=== PATIENT | male | born 1980 | race African-American/Black ===

== ENCOUNTER 2018-06-18 00:46 | Emergency (ER) | payer MEDICAID ==
[~2018-06-18] VITALS: Ht 182.9 cm; Wt 81.0 kg
[2018-06-18] MEDS ORDERED: ACETAMINOPHEN 325MG TABLET PO ONE (06:30)
[2018-06-18 07:13] LABS: CLARITY URINE CLEAR (CLEAR); COLOR URINE YELLOW (YELLOW); KETONES URINE NEGATIVE (NEGATIVE); LEUKOCYTE ESTERASE URINE NEGATIVE (NEGATIVE); NITRITE URINE NEGATIVE (NEGATIVE); OCCULT BLOOD URINE NEGATIVE (NEGATIVE); PH URINE 6.5 (4.5-8.0); PROTEIN URINE NEGATIVE (NEGATIVE); SPECIFIC GRAVITY URINE 1.002 (1.005-1.030); UROBILINOGEN URINE 0.2 E.U./dL (0.2-1.0)
[2018-06-18 07:13] LABS: CHLORIDE 110 mEq/L (98-107)
[2018-06-18] MEDS ORDERED: SODIUM CHLORIDE 0.9% 1,000 ML IV ONE (07:15)
[2018-06-18 07:17] LABS: BASOPHILS % 0.4 % (0.0-2.0); ETHANOL BLOOD < 10 mg/dL; HEMOGLOBIN. 15.1 g/dL (14.0-18.0); LYMPHOCYTES % 23.7 % (20.0-50.0); MEAN CORPUSCULAR VOLUME 89.5 fL (80.0-94.0); MEAN PLATELET VOLUME 8.6 fl (7.4-10.4); MONOCYTES % 7.6 % (2.0-8.0); NEUTROPHILS % 67.3 % (40.0-76.0); PLATELET 269 x1000/uL (130-400); RED BLOOD CELL COUNT 5.03 mill/uL (4.7-6.1)
[2018-06-18 07:32] LABS: *AMPHETAMINES SCREEN URINE NEGATIVE (NEGATIVE); CANNABINOID URINE SCREEN PRESUMTIVE POSITIVE (NEGATIVE); METHADONE URINE SCREEN NEGATIVE (NEGATIVE); OPIATES URINE SCREEN NEGATIVE (NEGATIVE); PHENCYCLIDINE URINE SCREEN NEGATIVE (NEGATIVE)
[2018-06-18 07:33] LABS: *BENZODIAZEPINES SCREEN URINE NEGATIVE (NEGATIVE); *COCAINE SCREEN URINE PRESUMTIVE POSITIVE (NEGATIVE)
[2018-06-18 07:34] LABS: *BARBITURATES SCREEN URINE NEGATIVE (NEGATIVE)
[2018-06-18] MEDS ORDERED: METOCLOPRAMIDE HCL 10MG/2ML VIAL IV ONE (08:30)
[2018-06-18] MEDS ORDERED: KETOROLAC 15MG/ML VIAL IV ONE (08:30)
[2018-06-18 10:33] VITALS: BP 106/75
== END 2018-06-18 10:40 | disposition home or self-care (01) ==
LOC: ER 00:46
DX: R55 Syncope and collapse (principal); R51 Headache; R73.03 Prediabetes; Z91.018 Allergy to other foods; Z98.890 Other specified postprocedural states
CPT/HCPCS: 36415; 71045; 80053; 80305; 81003; 83880; 84484; 85025; 93005; 96361; 96374; 96375; 99284; G0482; J1885; J2765; J7030

== ENCOUNTER 2018-11-17 05:48 | Emergency (ER) | payer MEDICAID ==
[~2018-11-17] VITALS: Ht 180.3 cm; Wt 66.0 kg
[2018-11-17] MEDS ORDERED: SODIUM CHLORIDE 0.9% 1,000 ML IV ONE (06:36)
[2018-11-17] MEDS ORDERED: KETOROLAC 30MG/ML VIAL IV STA (06:36)
[2018-11-17] MEDS ORDERED: METOCLOPRAMIDE HCL 10MG/2ML VIAL IV ONE (06:45)
[2018-11-17 06:58] LABS: BASOPHILS % 0.7 % (0.0-2.0); HEMATOCRIT. 38.7 % (42.0-52.0); HEMOGLOBIN. 13.6 g/dL (14.0-18.0); MEAN CORPUSCULAR HEMOGLOBIN 30.6 pg (28.0-32.0); MEAN PLATELET VOLUME 8.2 fl (7.4-10.4); MONOCYTES % 8.6 % (2.0-8.0); NEUTROPHILS % 58.7 % (40.0-76.0); PLATELET 257 x1000/uL (130-400); RED BLOOD CELL COUNT 4.45 mill/uL (4.7-6.1); RED CELL DISTRIBUTION WIDTH 12.2 % (11.6-14.6)
[2018-11-17 07:02] LABS: CHLORIDE 110 mEq/L (98-107)
[2018-11-17 11:30] VITALS: BP 116/68
== END 2018-11-17 11:30 | disposition home or self-care (01) ==
LOC: ER 05:48
DX: R07.89 Other chest pain (principal); R51 Headache; F12.10 Cannabis abuse, uncomplicated; Z98.890 Other specified postprocedural states
CPT/HCPCS: 36415; 71045; 80053; 83880; 84484; 85025; 93005; 96361; 96374; 96375; 99284; J1885; J2765; J7030; Z7610

== ENCOUNTER 2019-01-12 05:06 | Emergency (ER) | payer MEDICAID ==
[~2019-01-12] VITALS: Ht 180.3 cm; Wt 78.0 kg
[2019-01-12] MEDS ORDERED: KETOROLAC 60MG/2ML VIAL IM ONE (06:30)
[2019-01-12] MEDS ORDERED: AMOXICILLIN 500 MG CAPSULE PO ONE (06:30)
[2019-01-12 08:37] VITALS: BP 124/75
== END 2019-01-12 08:54 | disposition home or self-care (01) ==
LOC: ER 05:06
DX: R51 Headache (principal); K04.7 Periapical abscess without sinus; R68.84 Jaw pain
CPT/HCPCS: 70450; 70486; 96372; 99284; J1885

== ENCOUNTER 2019-03-29 04:58 | Emergency (ER) | payer MEDICAID ==
[~2019-03-29] VITALS: Ht 180.3 cm; Wt 80.0 kg
[2019-03-29 08:30] VITALS: BP 124/81
== END 2019-03-29 08:40 | disposition left against medical advice (07) ==
LOC: ER 04:58
DX: R51 Headache (principal); R42 Dizziness and giddiness; R53.1 Weakness; F17.200 Nicotine dependence, unspecified, uncomplicated; Z96.651 Presence of right artificial knee joint
CPT/HCPCS: 99283; A4217

== ENCOUNTER 2019-06-02 02:59 | Emergency (ER) | payer MEDICAID ==
[~2019-06-02] VITALS: Ht 180.3 cm; Wt 79.0 kg
[2019-06-02] MEDS ORDERED: KETOROLAC 30MG/ML VIAL IV STA (06:33)
[2019-06-02] MEDS ORDERED: SODIUM CHLORIDE 0.9% 1,000 ML IV ONE (06:33)
[2019-06-02] MEDS ORDERED: METOCLOPRAMIDE HCL 10MG/2ML VIAL IV ONE (06:45)
[2019-06-02 08:40] VITALS: BP 126/78
[2019-06-02] MEDS ORDERED: ACETAMINOPHEN 325MG TABLET PO ONE (09:00)
== END 2019-06-02 10:47 | disposition home or self-care (01) ==
LOC: ER 02:59
DX: R51 Headache (principal); H53.8 Other visual disturbances; F12.10 Cannabis abuse, uncomplicated; Z91.018 Allergy to other foods
CPT/HCPCS: 96361; 96374; 96375; 99283; J1885; J2765; J7030; Z7610